=== PATIENT | female | born 1995 ===

== ENCOUNTER 2020-05-05 23:40 | Observation (INO) | payer BC ==
--- NOTE | 2020-05-06 01:27 | US ---
INDICATION: Pelvic pain COMPARISON: CT abdomen pelvis with contrast 05/05/2020 TECHNIQUE: Multiple grayscale sonographic images of the pelvis. Scanning was performed transvaginally. FINDINGS: The uterus is normal size, measuring up to 6.8 cm in length. There is normal myometrial echotexture. The endometrial lining measures up to 7 mm in thickness, within normal limits. There is a 7.3 x 5.7 x 3.6 cm mass along the posterior margin of the uterus, corresponding to abnormality seen on CT. The mass has a thick vascular rind, to which intact arterial and venous flow are demonstrated by spectral Doppler. Centrally, the mass contains a 4.1 x 2.6 x 4.4 cm nonvascular echogenic area, suggesting hemorrhagic fluid. A separate right ovary is not visualized. The left ovary measures 2.2 x 2.4 x 2.5 cm and demonstrates normal follicular changes. Doppler evaluation of the left ovary is limited, likely due to deep location. No significant free fluid is demonstrated in the pelvis. IMPRESSION: 1. Pelvic mass along the posterior margin of the uterus measuring up to 7.3 cm. This most likely represents an ovarian mass, since a separate right ovary is not visualized. Intact arterial and venous flow are demonstrated to the mass by spectral Doppler, making torsion less likely. Correlate clinically. Discussed with Dr. Robertson. 2. Normal sonographic appearance of the left ovary. Limited doppler evaluation, likely due to deep location. Normal uterus. Dictated by Lois Heart MD @ May 06 2020 1:06AM Signed by Dr. Lois Heart @ May 06 2020 1:25AM
--- NOTE | 2020-05-06 01:48 | PCM.PREANE ---
Preanesthetic Assessment - Anesthesia/Transfusion/Family Hx Anesthesia History: Prior Anesthesia Without Reaction Family History of Anesthesia Reaction: No Transfusion History: No Prior Transfusion(s) - Review of Systems General: No Symptoms Pulmonary: No Symptoms Cardiovascular: No Symptoms Gastrointestinal: No Symptoms, Abdominal Pain, Nausea Neurological: No Symptoms Other: Reports: None - Physical Assessment NPO Status Date: 05/05/20 NPO Status Time: 12:00 Vital Signs: Last Vital Signs Temp 98.0 F 05/05/20 23:50 Pulse 20 L 05/05/20 23:50 Resp 20 05/05/20 23:50 BP 108/65 05/05/20 23:50 Pulse Ox 94 L 05/05/20 23:50 Height: 5 ft Weight: 77.111 kg ASA Class: 2E Mental Status: Alert & Oriented x3 Dentition: Reports: Normal Dentition Thyro-Mental Finger Breadths: 3 Mouth Opening Finger Breadths: 3 ROM/Head Extension: Full Lungs: Clear to Auscultation, Normal Respiratory Effort Cardiovascular: Regular Rate, Regular Rhythm - Lab Values: Laboratory Last Values SARS CoV-2 RNA Rapid CLAUDIA NEGATIVE (NEGATIVE) 05/06/20 01:03 - Allergies Allergies/Adverse Reactions: Allergies Allergy/AdvReac Type Severity Reaction Status Date / Time No Known Allergies Allergy Verified 05/05/20 23:48 - Blood Blood Available: Yes Product(s) Available: None - Anesthesia Plan Pre-Op Medication Ordered: None - Acknowledgements Anesthesia Type Planned: General Anesthesia Pt an Appropriate Candidate for the Planned Anesthesia: Yes Alternatives and Risks of Anesthesia Discussed w Pt/Guardian: Yes Pt/Guardian Understands and Agrees with Anesthesia Plan: Yes PreAnesthesia Questionnaire HEENT History: Reports: None Cardiovascular History: Reports: None Respiratory History: Reports: None Gastrointestinal History: Reports: None Genitourinary History: Reports: None 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
[2020-05-06] MEDS ORDERED: Rocuronium Bromide 50 MG/5 ML Syringe ONE (01:56)
[2020-05-06] MEDS ORDERED: Ondansetron 4 MG/2 ML SDV ONE (01:56)
[2020-05-06] MEDS ORDERED: Propofol 200 MG/20 ML SDV ONE ×2 (01:57→03:23)
[2020-05-06] MEDS ORDERED: fentaNYL 100 MCG/2 ML SDV ONE ×2 (01:57→02:55)
[2020-05-06] MEDS ORDERED: Midazolam 1 MG/ML 2 ML SDV ONE (01:57)
[2020-05-06] MEDS ORDERED: Octyl 2-Cyanoacrylate 1 Tube ONE (02:11)
[2020-05-06] MEDS ORDERED: Bupivacaine 0.25% 10 ML SDV ONE (02:11)
[2020-05-06] MEDS ORDERED: Bupivacaine 0.5% 10 ML SDV ONE (02:11)
[2020-05-06] MEDS ORDERED: Glycopyrrolate 0.2 MG/ML SDV ONE (03:09)
[2020-05-06] MEDS ORDERED: ceFAZolin/Dextrose,Iso-Osmotic 2 GM/50 ML Duplex Bag IV ONE (03:09)
[2020-05-06] MEDS ORDERED: Morphine 4 MG/ML Syringe IVPUSH PRN (03:20)
[2020-05-06] MEDS ORDERED: Acetaminophen/oxyCODONE 325-5 MG Tab PO PRN (03:20)
[2020-05-06] MEDS ORDERED: Promethazine 25 MG/ML SDV IM PRN (03:20)
[2020-05-06] MEDS ORDERED: Ketorolac 30 MG/ML SDV IVPUSH ONE (03:20)
[2020-05-06] MEDS ORDERED: Sugammadex Sodium 200 MG/2 ML VIAL ONE (03:23)
--- NOTE | 2020-05-06 03:27 | PCM.OPNOTE ---
- General Post-Op/Procedure Note Date of Surgery/Procedure: 05/06/20 Operative Procedure(s): Dignostic Laparascopy Pre Op Diagnosis: pelvic pain Post-Op Diagnosis: Same Anesthesia Technique: General ET Tube Primary Surgeon: Andrea Robertson EBL in mLs: 200 Complications: None Condition: Stable
[2020-05-06] MEDS: Lactated Ringers 1,000 ML IV SCH ×3 (04:46→23:30)
[2020-05-06] MEDS: Ondansetron 4 MG/2 ML SDV IVPUSH PRN ×2 (04:48→21:02)
[2020-05-06 07:04] LABS: BLOOD UREA NITROGEN,BUN 10 mg/dL (7.0-18.0); CARBON DIOXIDE,CO2 23.2 mmol/L (21.0-32.0); CHLORIDE,CL 104 mmol/L (98-107); GLUCOSE RANDOM 133 mg/dL (74-106); POTASSIUM,K 3.7 mmol/L (3.5-5.1); SODIUM,NA 137 mmol/L (136-145)
--- NOTE | 2020-05-06 07:07 | PCM.POSTAN ---
POST ANESTHESIA ASSESSMENT - MENTAL STATUS Mental Status: Alert - VITAL SIGNS Vital Signs: Last Vital Signs Temp 98.4 F 05/06/20 04:33 Pulse 108 H 05/06/20 04:33 Resp 14 05/06/20 04:33 BP 108/60 05/06/20 04:33 Pulse Ox 96 05/06/20 04:33 - RESPIRATORY Respiratory Status: Respiratory Rate WNL - CARDIOVASCULAR CV Status: Pulse Rate WNL - GASTROINTESTINAL GI Status: No Symptoms - POST OP HYDRATION Hydration Status: Adequate & Stable (denies any pain or nausea)
--- NOTE | 2020-05-06 07:33 | PCM48HPAN ---
Post Anesthesia Note - EVALUATION WITHIN 48HRS OF ANESTHETIC Vital Signs in Normal Range: Yes Patient Participated in Evaluation: Yes Respiratory Function Stable: Yes Airway Patent: Yes Cardiovascular Function Stable: Yes Hydration Status Stable: Yes Pain Control Satisfactory: Yes Nausea and Vomiting Control Satisfactory: Yes Mental Status Recovered: Yes Vital Signs: Last Vital Signs Temp 98.4 F 05/06/20 04:33 Pulse 108 H 05/06/20 04:33 Resp 14 05/06/20 04:33 BP 108/60 05/06/20 04:33 Pulse Ox 96 05/06/20 04:33
[2020-05-06] MEDS: Acetaminophen/oxyCODONE 325-5 MG Tab PO PRN ×2 (08:36→21:07)
[2020-05-06] MEDS: Ketorolac 30 MG/ML SDV IVPUSH PRN ×2 (10:17→15:45)
[2020-05-06] MEDS: ceFAZolin 1 GM in Premix Bag 1 BAG IV SCH ×2 (11:30→21:05)
[2020-05-06] MEDS: metroNIDAZOLE/Normal Saline 500 MG in Premix Bag 1 BAG IV SCH ×2 (12:49→21:50)
--- NOTE | 2020-05-06 15:14 | OR ---
SURGEON: Andrea Robertson MD DATE OF PROCEDURE: 05/06/2020 PREOPERATIVE DIAGNOSES: Pelvic pain, pelvic mass, suspecting ovarian torsion. POSTOPERATIVE DIAGNOSES: Pelvic pain, pelvic mass, pelvic adhesion, pelvic inflammatory disease with the beginning of tubo-ovarian abscess. PRIMARY SURGEON: Andrea Robertson MD TECHNICAL ASSISTANT: DANYA oneil. ANESTHESIA: General endotracheal intubation, Ms. Lisa NunesSTAN ESTIMATED BLOOD LOSS: 250 to 300 mL. COMPLICATIONS: None. FINDINGS: 3+ in the pelvis, bilateral enlargement of the ovary with a possibility of early form of tubo-ovarian abscess, pelvic adhesion from previous PID, most likely due to chlamydia. OPERATIONS PERFORMED: Multiple-puncture diagnostic laparoscopy, lysis of adhesion, evacuation of bilateral ovarian hematoma, and peritoneal lavage. INDICATIONS FOR SURGERY: This patient is 25. She is nulliparous. She came to the emergency room complaining of severe lower abdominal pain, cyclic in nature. She had a CAT scan performed in [facility] emergency room with a pelvic mass of 5 to 6 cm, multiloculated. At that time, radiologist was suspecting that she may have an ovarian torsion. A pelvic ultrasound in our ER confirmed the presence of the pelvic mass, which is posterior to the uterus, but it was very suspicious for the torsion, but not definitive diagnostic. Potential differential diagnosis is torsion versus tubo-ovarian abscess. PROCEDURE IN DETAIL: The patient was brought to the OR, properly identified. After adequate level of anesthesia and straight cath, the patient placed in lithotomy position with an access to the abdomen and the vagina. A straight catheter was used to empty the bladder and then Hulka manipulator placed in the uterus for manipulation, then the operation shifted abdominally after the surgeon changed his gloves. A stab wound beneath the umbilicus was made and the Veress needle was placed in the peritoneal cavity and that cavity insufflated with 3.5 L of carbon dioxide, and then utilizing the Visiport technique, the peritoneal cavity entered through the bladder scope through this central incision beneath the umbilicus. Upon entering, there was a collection of fluid with pus-looking red fluid in the cul- de-sac with the pelvic adhesion. It become obvious that the patient does not have a torsion, rather have a beginning of tubo-ovarian abscess. A 10/12 trocar placed in the left iliac fossa and 5 mm trocar was placed in the right iliac fossa under direct vision. The pus was suctioned from the peritoneal cavity and then thorough peritoneal lavage was performed. Some of the adhesion in the pelvis and the cul-de-sac and the posterior of the uterus was lysed, reasonably the ovary from its attachment to the cul-de-sac and the posterior uterus. There was a small hematoma in the left ovary. It evacuated without any problem. There was a collection of fluid, cystic fluid in nature. It is consistent with tubo-ovarian abscess and the right tube was again evacuated with the suction and after that thorough and copious amount of peritoneal lavage was performed. Once we did that, and making sure that there was no oozing, no bleeding, the procedure was ended. Instruments were retrieved from the abdomen and the vagina and the multiple laparoscopic incisions were closed in layer. Instrument and sponge count was correct. The patient tolerated the procedure well, went to recovery room in stable general condition. CORRINA / NEGRITO /[id number]
[2020-05-07] MEDS: Ketorolac 30 MG/ML SDV IVPUSH PRN (00:56)
[2020-05-07] MEDS: ceFAZolin 1 GM in Premix Bag 1 BAG IV SCH ×2 (04:55→12:34)
[2020-05-07] MEDS: Ondansetron 4 MG/2 ML SDV IVPUSH PRN (05:54)
[2020-05-07] MEDS: metroNIDAZOLE/Normal Saline 500 MG in Premix Bag 1 BAG IV SCH ×2 (05:56→13:11)
[2020-05-07 06:06] LABS: BLOOD UREA NITROGEN,BUN 8 mg/dL (7.0-18.0); CHLORIDE,CL 106 mmol/L (98-107); GLUCOSE RANDOM 111 mg/dL (74-106); POTASSIUM,K 3.6 mmol/L (3.5-5.1); SODIUM,NA 140 mmol/L (136-145)
[2020-05-07] MEDS: Lactated Ringers 1,000 ML IV SCH (09:06)
[2020-05-07] MEDS: Acetaminophen/oxyCODONE 325-5 MG Tab PO PRN ×2 (09:44→16:26)
[2020-05-07] MEDS ORDERED: Cetirizine 10 MG Tab PO SCH (09:45)
--- NOTE | 2020-05-07 15:26 | PCM.SURGPN ---
- General Info Date of Service: 05/07/20 POD#: 1 Functional Status: Reports: Pain Controlled - Review of Systems General: Reports: No Symptoms HEENT: Reports: No Symptoms Pulmonary: Reports: No Symptoms Cardiovascular: Reports: No Symptoms Gastrointestinal: Reports: No Symptoms Genitourinary: Reports: No Symptoms Musculoskeletal: Reports: No Symptoms Skin: Reports: No Symptoms Neurological: Reports: No Symptoms Psychiatric: Reports: No Symptoms - Patient Data Vitals - Most Recent: Last Vital Signs Temp 36.2 C 05/07/20 07:00 Pulse 84 05/07/20 07:00 Resp 14 05/07/20 07:00 BP 110/72 05/07/20 07:00 Pulse Ox 96 05/07/20 07:00 Weight - Most Recent: 77.111 kg I&O - Last 24 Hours: Intake & Output 05/07/20 05/07/20 05/07/20 06:59 14:59 22:59 Intake Total 1848 Output Total 650 Balance 1198 Lab Results Last 24 Hrs: Laboratory Results - last 24 hr 05/07/20 05/07/20 Range/Units 05:10 05:10 WBC 8.19 (4.0-11.0) K/uL RBC 3.83 L (4.30-5.90) M/uL Hgb 10.3 L (12.0-16.0) g/dL Hct 32.0 L (36.0-46.0) % MCV 83.6 (80.0-98.0) fL MCH 26.9 L (27.0-32.0) pg MCHC 32.2 (31.0-37.0) g/dL RDW Std Deviation 44.9 (28.0-62.0) fl RDW Coeff of Ruthann 15 (11.0-15.0) % Plt Count 250 (150-400) K/uL MPV 9.00 (7.40-12.00) fL Neut % (Auto) 67.2 (48.0-80.0) % Lymph % (Auto) 23.3 (16.0-40.0) % Tama % (Auto) 8.3 (0.0-15.0) % Eos % (Auto) 1.0 (0.0-7.0) % Baso % (Auto) 0.2 (0.0-1.5) % Neut # (Auto) 5.5 (1.4-5.7) K/uL Lymph # (Auto) 1.9 (0.6-2.4) K/uL Tama # (Auto) 0.7 (0.0-0.8) K/uL Eos # (Auto) 0.1 (0.0-0.7) K/uL Baso # (Auto) 0.0 (0.0-0.1) K/uL Nucleated RBC % 0.0 /100WBC Nucleated RBCs # 0 K/uL Sodium 140 (136-145) mmol/L Potassium 3.6 (3.5-5.1) mmol/L Chloride 106 (98-107) mmol/L Carbon Dioxide 29.0 (21.0-32.0) mmol/L BUN 8 (7.0-18.0) mg/dL Creatinine 0.8 (0.6-1.0) mg/dL Est Cr Clr Drug Dosing 77.89 mL/min Estimated GFR (MDRD) > 60.0 ml/min Glucose 111 H (74-106) mg/dL Calcium 8.3 L (8.5-10.1) mg/dL Med Orders - Current: Current Medications Cetirizine HCl (Zyrtec) 10 mg PO DAILY [facility] Last Admin: 05/07/20 10:11 Dose: 10 mg Documented by: Lactated Ringer's (Ringers, Lactated) 1,000 mls @ 125 mls/hr IV ASDIRECTED [facility] Last Admin: 05/07/20 09:06 Dose: 125 mls/hr Documented by: Cefazolin Sodium/Dextrose 1 gm (/ Premix) 50 mls @ 100 mls/hr IV Q8H [facility] Last Admin: 05/07/20 12:34 Dose: 100 mls/hr Documented by: Metronidazole 500 mg/ Premix 100 mls @ 100 mls/hr IV Q8H [facility] Last Admin: 05/07/20 13:11 Dose: 100 mls/hr Documented by: Ketorolac Tromethamine (Toradol) 30 mg IVPUSH Q6H PRN PRN Reason: Pain (severe 7-10) Stop: 05/11/20 09:31 Last Admin: 05/07/20 00:56 Dose: 30 mg Documented by: Morphine Sulfate (Morphine) 4 mg IVPUSH Q2H PRN PRN Reason: Pain (severe 7-10) Ondansetron HCl (Zofran) 4 mg IVPUSH Q6H PRN PRN Reason: Nausea/Vomiting Last Admin: 05/07/20 05:54 Dose: 4 mg Documented by: Oxycodone/Acetaminophen (Percocet 325-5 Mg) 1 tab PO Q4H PRN PRN Reason: Pain (moderate 4-6) Last Admin: 05/06/20 04:50 Dose: 1 tab Documented by: Oxycodone/Acetaminophen (Percocet 325-5 Mg) 2 tab PO Q4H PRN PRN Reason: Pain (moderate 4-6) Last Admin: 05/07/20 09:44 Dose: 2 tab Documented by: Promethazine HCl (Phenergan) 25 mg IM Q6H PRN PRN Reason: Nausea/Vomiting Last Admin: 05/07/20 10:07 Dose: 25 mg Documented by: Discontinued Medications Bupivacaine HCl (Sensorcaine-Mpf 0.25%) Confirm Administered Dose 10 ml .ROUTE .STK-MED ONE Stop: 05/06/20 02:12 Bupivacaine HCl (Sensorcaine-Mpf 0.5%) Confirm Administered Dose 10 ml .ROUTE .STK-MED ONE Stop: 05/06/20 02:12 Cefazolin Sodium/Dextrose (Ancef) Confirm Administered Dose 2 gm IV .STK-MED ONE Stop: 05/06/20 03:10 Fentanyl (Sublimaze) Confirm Administered Dose 100 mcg .ROUTE .STK-MED ONE Stop: 05/06/20 01:58 Fentanyl (Sublimaze) Confirm Administered Dose 100 mcg .ROUTE .STK-MED ONE Stop: 05/06/20 02:56 Glycopyrrolate (Robinul) Confirm Administered Dose 0.4 mg .ROUTE .STK-MED ONE Stop: 05/06/20 03:10 Ketorolac Tromethamine (Toradol) 30 mg IVPUSH ONETIME ONE Stop: 05/06/20 03:21 Last Admin: 05/06/20 03:52 Dose: 30 mg Documented by: Lidocaine HCl (Xylocaine-Mpf 1%) Confirm Administered Dose 5 ml .ROUTE .STK-MED ONE Stop: 05/06/20 01:57 Midazolam HCl (Versed 1 Mg/Ml) Confirm Administered Dose 2 mg .ROUTE .STK-MED ON E Stop: 05/06/20 01:58 Octyl Cyanoacrylate (Dermabond Advance) Confirm Administered Dose 1 applic .ROUTE .STK-MED ONE Stop: 05/06/20 02:12 Ondansetron HCl (Zofran) Confirm Administered Dose 4 mg .ROUTE .STK-MED ONE Stop: 05/06/20 01:57 Propofol (Diprivan 20 Ml) Confirm Administered Dose 200 mg .ROUTE .STK-MED ONE Stop: 05/06/20 01:58 Propofol (Diprivan 20 Ml) Confirm Administered Dose 200 mg .ROUTE .STK-MED ONE Stop: 05/06/20 03:24 Rocuronium [place] (Rocuronium [place]) Confirm Administered Dose 50 mg .ROUTE .STK-MED ONE Stop: 05/06/20 01:57 Sugammadex Sodium (Bridion) Confirm Administered Dose 200 mg .ROUTE .STK-MED ONE Stop: 05/06/20 03:24 - Exam Wound/Incisions: Healing Well General: Alert, Oriented HEENT: Pupils Equal Neck: Supple Lungs: Clear to Auscultation, Normal Respiratory Effort Cardiovascular: Regular Rate, Regular Rhythm GI/Abdominal Exam: Normal Bowel Sounds, Soft, Non-Tender, No Organomegaly, No Distention, No Abnormal Bruit, No Mass, Pelvis Stable Extremities: Normal Inspection, Normal Range of Motion, Non-Tender, No Pedal Edema, Normal Capillary Refill Skin: Warm, Dry, Intact Neurological: No New Focal Deficit Psy/Mental Status: Alert, Normal Affect, Normal Mood Sepsis Event Note - Evaluation Sepsis Screening Result: No Definite Risk - Focused Exam Vital Signs: Vital Signs Temp Pulse Resp BP Pulse Ox 05/07/20 07:00 36.2 C 84 14 110/72 96 05/07/20 05:06 36.2 C 92 16 107/67 98 - Problem List Review Problem List Initiated/Reviewed/Updated: Yes - My Orders Last 24 Hours: Active Orders 24 hr Category Date Time Status Cetirizine [ZyrTEC] Med 05/07/20 09:45 Active 10 mg PO DAILY Medication Orders Cetirizine HCl (Zyrtec) 10 mg PO DAILY [facility] Last Admin: 05/07/20 10:11 Dose: 10 mg Documented by: EDISON Cosigned by: OSCAR Lactated Ringer's (Ringers, Lactated) 1,000 mls @ 125 mls/hr IV ASDIRECTED [facility] Last Admin: 05/07/20 09:06 Dose: 125 mls/hr Documented by: EDISON Cosigned by: OSCAR Infusion: 05/07/20 07:30 Dose: 125 mls/hr Documented by: EDISON Cosigned by: OSCAR Admin: 05/06/20 23:30 Dose: 125 mls/hr Documented by: Infusion: 05/06/20 20:52 Dose: 125 mls/hr Documented by: Admin: 05/06/20 12:52 Dose: 125 mls/hr Documented by: Infusion: 05/06/20 12:46 Dose: 125 mls/hr Documented by: Admin: 05/06/20 04:46 Dose: 125 mls/hr Documented by: MANUEL Cefazolin Sodium/Dextrose 1 gm (/ Premix) 50 mls @ 100 mls/hr IV Q8H [facility] Last Admin: 05/07/20 12:34 Dose: 100 mls/hr Documented by: Infusion: 05/07/20 05:25 Dose: 100 mls/hr Documented by: Admin: 05/07/20 04:55 Dose: 100 mls/hr Documented by: Infusion: 05/06/20 21:35 Dose: 100 mls/hr Documented by: Admin: 05/06/20 21:05 Dose: 100 mls/hr Documented by: Infusion: 05/06/20 12:00 Dose: 100 mls/hr Documented by: Admin: 05/06/20 11:30 Dose: 100 mls/hr Documented by: JESSICA Metronidazole 500 mg/ Premix 100 mls @ 100 mls/hr IV Q8H [facility] Last Admin: 05/07/20 13:11 Dose: 100 mls/hr Documented by: Infusion: 05/07/20 06:56 Dose: 100 mls/hr Documented by: Admin: 05/07/20 05:56 Dose: 100 mls/hr Documented by: Infusion: 05/06/20 22:50 Dose: 100 mls/hr Documented by: Admin: 05/06/20 21:50 Dose: 100 mls/hr Documented by: Infusion: 05/06/20 13:49 Dose: 100 mls/hr Documented by: Admin: 05/06/20 12:49 Dose: 100 mls/hr Documented by: JESSICA Ketorolac Tromethamine (Toradol) 30 mg IVPUSH Q6H PRN PRN Reason: Pain (severe 7-10) Stop: 05/11/20 09:31 Last Admin: 05/07/20 00:56 Dose: 30 mg Documented by: Admin: 05/06/20 15:45 Dose: 30 mg Documented by: Admin: 05/06/20 10:17 Dose: 30 mg Documented by: JESSICA Morphine Sulfate (Morphine) 4 mg IVPUSH Q2H PRN PRN Reason: Pain (severe 7-10) Ondansetron HCl (Zofran) 4 mg IVPUSH Q6H PRN PRN Reason: Nausea/Vomiting Last Admin: 05/07/20 05:54 Dose: 4 mg Documented by: Admin: 05/06/20 21:02 Dose: 4 mg Documented by: Admin: 05/06/20 04:48 Dose: 4 mg Documented by: MANUEL Oxycodone/Acetaminophen (Percocet 325-5 Mg) 1 tab PO Q4H PRN PRN Reason: Pain (moderate 4-6) Last Admin: 05/06/20 04:50 Dose: 1 tab Documented by: MAGGIEMAC Oxycodone/Acetaminophen (Percocet 325-5 Mg) 2 tab PO Q4H PRN PRN Reason: Pain (moderate 4-6) Last Admin: 05/07/20 09:44 Dose: 2 tab Documented by: EDISON Cosigned by: OSCAR Admin: 05/06/20 21:07 Dose: 2 tab Documented by: Admin: 05/06/20 08:36 Dose: 2 tab Documented by: JESSICA Promethazine HCl (Phenergan) 25 mg IM Q6H PRN PRN Reason: Nausea/Vomiting Last Admin: 05/07/20 10:07 Dose: 25 mg Documented by: EDISON Cosigned by: OSCAR - Assessment Assessment (Free Text/Narrative):: Afebriel , on regular diet. abdomen soft. - Plan Plan (Free Text/Narrative):: Send home today on Po antibiotic. fellow up in 1 wks.
--- NOTE | 2020-05-07 15:27 | PCM.DCSUM1 ---
Discharge Summary - Hospital Course Diagnosis: Stroke: No - Discharge Data Discharge Date: 05/07/20 Discharge Disposition: Home, Self-Care 01 Condition: Stable - Referral to Home Health Primary Care Physician: Andrea Robertson MD - Patient Summary/Data Operative Procedure(s) Performed: Dignostic Laparascopy - Patient Instructions Diet: Usual Diet as Tolerated Activity: As Tolerated Driving: Do Not Drive Showering/Bathing: May Shower Wound/Incision Care: Keep Operative Site/Wound Site Clean and Dry Notify Provider of: Fever, Increased Pain, Nausea and/or Vomiting - Discharge Plan Home Medications: Home Meds Cetirizine HCl [Zyrtec] 10 mg PO DAILY 05/05/20 [History] Levothyroxine [Synthroid] 88 mcg PO ACBREAKFAST 05/05/20 [History] Sertraline [Zoloft] 50 mg PO DAILY 05/05/20 [History] Forms: ED Department Discharge Referrals: Andrea Robertson MD [Primary Care Provider] - - Discharge Summary/Plan Comment DC Time >30 min.: Yes - General Info Date of Service: 05/07/20 Functional Status: Reports: Pain Controlled - Review of Systems General: Reports: No Symptoms HEENT: Reports: No Symptoms Pulmonary: Reports: No Symptoms Cardiovascular: Reports: No Symptoms Gastrointestinal: Reports: No Symptoms Genitourinary: Reports: No Symptoms Musculoskeletal: Reports: No Symptoms Skin: Reports: No Symptoms Neurological: Reports: No Symptoms Psychiatric: Reports: No Symptoms - Patient Data Vitals - Most Recent: Last Vital Signs Temp 36.2 C 05/07/20 07:00 Pulse 84 05/07/20 07:00 Resp 14 05/07/20 07:00 BP 110/72 05/07/20 07:00 Pulse Ox 96 05/07/20 07:00 Weight - Most Recent: 77.111 kg I&O - Last 24 hours: Intake & Output 05/07/20 05/07/20 05/07/20 06:59 14:59 22:59 Intake Total 1848 Output Total 650 Balance 1198 Lab Results - Last 24 hrs: Laboratory Results - last 24 hr 05/07/20 05/07/20 Range/Units 05:10 05:10 WBC 8.19 (4.0-11.0) K/uL RBC 3.83 L (4.30-5.90) M/uL Hgb 10.3 L (12.0-16.0) g/dL Hct 32.0 L (36.0-46.0) % MCV 83.6 (80.0-98.0) fL MCH 26.9 L (27.0-32.0) pg MCHC 32.2 (31.0-37.0) g/dL RDW Std Deviation 44.9 (28.0-62.0) fl RDW Coeff of Ruthann 15 (11.0-15.0) % Plt Count 250 (150-400) K/uL MPV 9.00 (7.40-12.00) fL Neut % (Auto) 67.2 (48.0-80.0) % Lymph % (Auto) 23.3 (16.0-40.0) % [place] % (Auto) 8.3 (0.0-15.0) % Eos % (Auto) 1.0 (0.0-7.0) % Baso % (Auto) 0.2 (0.0-1.5) % Neut # (Auto) 5.5 (1.4-5.7) K/uL Lymph # (Auto) 1.9 (0.6-2.4) K/uL [place] # (Auto) 0.7 (0.0-0.8) K/uL Eos # (Auto) 0.1 (0.0-0.7) K/uL Baso # (Auto) 0.0 (0.0-0.1) K/uL Nucleated RBC % 0.0 /100WBC Nucleated RBCs # 0 K/uL Sodium 140 (136-145) mmol/L Potassium 3.6 (3.5-5.1) mmol/L Chloride 106 (98-107) mmol/L Carbon Dioxide 29.0 (21.0-32.0) mmol/L BUN 8 (7.0-18.0) mg/dL Creatinine 0.8 (0.6-1.0) mg/dL Est Cr Clr Drug Dosing 77.89 mL/min Estimated GFR (MDRD) > 60.0 ml/min Glucose 111 H (74-106) mg/dL Calcium 8.3 L (8.5-10.1) mg/dL Med Orders - Current: Current Medications Cetirizine HCl (Zyrtec) 10 mg PO DAILY [facility] Last Admin: 05/07/20 10:11 Dose: 10 mg Documented by: Lactated Ringer's (Ringers, Lactated) 1,000 mls @ 125 mls/hr IV ASDIRECTED [facility] Last Admin: 05/07/20 09:06 Dose: 125 mls/hr Documented by: Cefazolin Sodium/Dextrose 1 gm (/ Premix) 50 mls @ 100 mls/hr IV Q8H [facility] Last Admin: 05/07/20 12:34 Dose: 100 mls/hr Documented by: Metronidazole 500 mg/ Premix 100 mls @ 100 mls/hr IV Q8H [facility] Last Admin: 05/07/20 13:11 Dose: 100 mls/hr Documented by: Ketorolac Tromethamine (Toradol) 30 mg IVPUSH Q6H PRN PRN Reason: Pain (severe 7-10) Stop: 05/11/20 09:31 Last Admin: 05/07/20 00:56 Dose: 30 mg Documented by: Morphine Sulfate (Morphine) 4 mg IVPUSH Q2H PRN PRN Reason: Pain (severe 7-10) Ondansetron HCl (Zofran) 4 mg IVPUSH Q6H PRN PRN Reason: Nausea/Vomiting Last Admin: 05/07/20 05:54 Dose: 4 mg Documented by: Oxycodone/Acetaminophen (Percocet 325-5 Mg) 1 tab PO Q4H PRN PRN Reason: Pain (moderate 4-6) Last Admin: 05/06/20 04:50 Dose: 1 tab Documented by: Oxycodone/Acetaminophen (Percocet 325-5 Mg) 2 tab PO Q4H PRN PRN Reason: Pain (moderate 4-6) Last Admin: 05/07/20 09:44 Dose: 2 tab Documented by: Promethazine HCl (Phenergan) 25 mg IM Q6H PRN PRN Reason: Nausea/Vomiting Last Admin: 05/07/20 10:07 Dose: 25 mg Documented by: Discontinued Medications Bupivacaine HCl (Sensorcaine-Mpf 0.25%) Confirm Administered Dose 10 ml .ROUTE .STK-MED ONE Stop: 05/06/20 02:12 Bupivacaine HCl (Sensorcaine-Mpf 0.5%) Confirm Administered Dose 10 ml .ROUTE .STK-MED ONE Stop: 05/06/20 02:12 Cefazolin Sodium/Dextrose (Ancef) Confirm Administered Dose 2 gm IV .STK-MED ONE Stop: 05/06/20 03:10 Fentanyl (Sublimaze) Confirm Administered Dose 100 mcg .ROUTE .STK-MED ONE Stop: 05/06/20 01:58 Fentanyl (Sublimaze) Confirm Administered Dose 100 mcg .ROUTE .STK-MED ONE Stop: 05/06/20 02:56 Glycopyrrolate (Robinul) Confirm Administered Dose 0.4 mg .ROUTE .STK-MED ONE Stop: 05/06/20 03:10 Ketorolac Tromethamine (Toradol) 30 mg IVPUSH ONETIME ONE Stop: 05/06/20 03:21 Last Admin: 05/06/20 03:52 Dose: 30 mg Documented by: Lidocaine HCl (Xylocaine-Mpf 1%) Confirm Administered Dose 5 ml .ROUTE .STK-MED ONE Stop: 05/06/20 01:57 Midazolam HCl (Versed 1 Mg/Ml) Confirm Administered Dose 2 mg .ROUTE .STK-MED ONE Stop: 05/06/20 01:58 Octyl Cyanoacrylate (Dermabond Advance) Confirm Administered Dose 1 applic .ROUTE .STK-MED ONE Stop: 05/06/20 02:12 Ondansetron HCl (Zofran) Confirm Administered Dose 4 mg .ROUTE .STK-MED ONE Stop: 05/06/20 01:57 Propofol (Diprivan 20 Ml) Confirm Administered Dose 200 mg .ROUTE .STK-MED ONE Stop: 05/06/20 01:58 Propofol (Diprivan 20 Ml) Confirm Administered Dose 200 mg .ROUTE .STK-MED ONE Stop: 05/06/20 03:24 Rocuronium [place] (Rocuronium [place]) Confirm Administered Dose 50 mg .ROUTE .STK-MED ONE Stop: 05/06/20 01:57 Sugammadex Sodium ([place]) Confirm Administered Dose 200 mg .ROUTE .STK-MED ONE Stop: 05/06/20 03:24 - Exam General: Reports: Alert, Oriented HEENT: Reports: Pupils Equal, Pupils Reactive, EOMI, Mucous Membr. Moist/[place] Neck: Reports: Supple Lungs: Reports: Clear to Auscultation, Normal Respiratory Effort Cardiovascular: Reports: Regular Rate, Regular Rhythm GI/Abdominal Exam: Normal Bowel Sounds, Soft, Non-Tender, No Organomegaly, No Distention, No Abnormal Bruit, No Mass, Pelvis Stable (Female) Exam: Normal External Exam, Normal Speculum Exam, Normal Bimanual Exam Rectal (Female) Exam: Normal Exam, Normal Rectal Tone Back Exam: Reports: Normal Inspection, Full Range of Motion Extremities: Normal Inspection, Normal Range of Motion, Non-Tender, No Pedal Edema, Normal Capillary Refill Skin: Reports: Warm, Dry, Intact Wound/Incisions: Reports: Healing Well Neurological: Reports: No New Focal Deficit Psy/Mental Status: Reports: Alert, Normal Affect, Normal Mood
== END 2020-05-07 17:40 | disposition home or self-care (01) ==
LOC: MW.ED 23:40 → MW.SDS 05-06 00:33 → MW.MS 05-06 04:09 → MW.SDS 05-06 11:10 → MW.MS 05-06 11:13
PROVIDERS: ADMIT Obstetrics & Gynecology; ATTEND Obstetrics & Gynecology
DX: S37.4 Injury of ovary (principal); N73.6 Female pelvic peritoneal adhesions (postinfective); E03.9 Hypothyroidism, unspecified; F41.9 Anxiety disorder, unspecified; Z20.828 Contact with and (suspected) exposure to other viral communicable diseases; Z01.812 Encounter for preprocedural laboratory examination; Z79.899 Other long term (current) drug therapy
CPT/HCPCS: 36415; 49322; 49329; 58660; 76856; 80048; 85025; 87635; A9270; J0690; J1885; J2001; J2250; J2405; J2550; J2704; J3010; J3490; J7120; 00840; 96365; 96366; 96367; 96375; 96376; G0378; U0002